=== PATIENT | male | born 1995 | race Two or more races ===

== ENCOUNTER 2019-07-27 12:43 | Emergency (ER) | payer SELFPAY ==
[~2019-07-27] VITALS: Ht 170.2 cm; Wt 119.1 kg
[2019-07-27 12:48] VITALS: BP 118/67
[2019-07-27] MEDS ORDERED: LIDOCAINE-MPF 1%, 5ML ONE ×2 (13:40→14:07)
--- NOTE | 2019-07-27 13:52 | NUR ---
MED PULLED FOR PROVIDER ADMIN
[2019-07-27] MEDS ORDERED: DIPH,PERTUSS(ACELL),TET VAC/PF 0.5 ML IM-VACC ONE ×2 (14:00→14:04)
[2019-07-27] MEDS ORDERED: LIDOCAINE-MPF 1%, 5ML INFIL ONE (14:00)
--- NOTE | 2019-07-27 14:09 | NUR ---
PROVIDER AT BEDSIDE TO SUTURE.
[2019-07-27] MEDS ORDERED: NEOSPORIN OINT. PKT 1 PACKET ONE (14:43)
== END 2019-07-27 15:25 | disposition home or self-care (01) ==
LOC: ED 15:06
DX: S61.210A Laceration without foreign body of right index finger without damage to nail, initial encounter (principal); W26.0XXA Contact with knife, initial encounter; Y93.89 Activity, other specified; Y92.098 Other place in other non-institutional residence as the place of occurrence of the external cause; Y99.8 Other external cause status
CPT/HCPCS: 12041; 90471; 90715; 99284

== ENCOUNTER 2019-08-03 12:25 | Emergency (ER) | payer SELFPAY ==
[~2019-08-03] VITALS: Ht 170.2 cm; Wt 117.7 kg
[2019-08-03 12:29] VITALS: BP 125/79
--- NOTE | 2019-08-03 12:37 | NUR ---
Pt here for suture removal of right hand index finger. Pt had two sutures removed by this RN.
--- NOTE | 2019-08-03 12:39 | NUR ---
Patient/Caregiver given discharge instructions and they have confirmed that they understand the instructions. Patient ambulatory with steady gait.
== END 2019-08-03 12:48 | disposition home or self-care (01) ==
LOC: ED 12:42
DX: S61.210D Laceration without foreign body of right index finger without damage to nail, subsequent encounter (principal); Z48.02 Encounter for removal of sutures; X58.XXXD Exposure to other specified factors, subsequent encounter
CPT/HCPCS: 99281

== ENCOUNTER 2019-10-08 20:47 | Emergency (ER) | payer SELFPAY ==
[~2019-10-08] VITALS: Ht 170.2 cm; Wt 115.9 kg
--- NOTE | 2019-10-08 21:00 | NUR ---
24 year old male to ED for LLQ abdominal pain with diarrhea. He states pain comes and goes but is getting worse. It is described as a sharp pain. No aggrevating or aleviating factors. Patient resting comfortable awaiting lab and imaging.
[2019-10-08 21:29] LABS: BASOPHILS # (AUTO) 0.05 x10^3/uL (0-0.1); BASOPHILS % (AUTO) 1 % (0-1); EOSINOPHILS % (AUTO) 1 % (1-7); LYMPHOCYTES # (AUTO) 2.95 x10^3/uL (1-3.4); LYMPHOCYTES % (AUTO) 43 % (22-44); MD NO; MEAN CORPUSCULAR HEMOGLOBIN 30.1 pg (27.5-34.5); MEAN CORPUSCULAR HGB CONC 33.3 g/dL (33.2-36.2); MEAN CORPUSCULAR VOLUME 90.4 fL (81-97); MEAN PLATELET VOLUME 8.5 fL (7.4-10.4); MONOCYTES # (AUTO) 0.37 x10^3/uL (0.2-0.8); MONOCYTES % (AUTO) 5 % (2-9); NEUTROPHILS # (AUTO) 3.47 x10^3/uL (1.8-6.8); NEUTROPHILS % (AUTO) 50 % (42-75); PLATELET COUNT 264 x10^3/uL (130-400); RED BLOOD COUNT 5.16 x10^6/uL (4.38-5.82); RED CELL DISTRIBUTION WIDTH 14.2 % (9.4-14.8)
[2019-10-08 21:39] LABS: ALANINE AMINOTRANSFERASE 99 U/L (12-78); ALBUMIN 3.9 g/dL (3.4-5.0); ANION GAP 6 mmol/L (5-15); CALCIUM 8.7 mg/dL (8.5-10.1); CHLORIDE 109 mmol/L (98-107); CREATININE 1.07 mg/dL (0.7-1.3)
[2019-10-08 21:43] LABS: ALKALINE PHOSPHATASE 87 U/L (45-117); BILIRUBIN,TOTAL 0.5 mg/dL (0.2-1.0); TOTAL PROTEIN 8.2 g/dL (6.4-8.2); TROPONIN I < 0.015 ng/mL (0.000-0.045)
[2019-10-08 22:25] LABS: MICROSCOPIC NOT IND
[2019-10-08 22:59] VITALS: BP 106/66
== END 2019-10-08 23:19 | disposition home or self-care (01) ==
LOC: ED 23:00
DX: R10.84 Generalized abdominal pain (principal); R07.89 Other chest pain; R19.7 Diarrhea, unspecified; R94.31 Abnormal electrocardiogram [ECG] [EKG]
CPT/HCPCS: 36415; 74022; 80053; 80307; 81003; 83690; 84484; 85025; 93005; 99285

== ENCOUNTER 2019-11-18 08:31 | Emergency (ER) | payer OTHER ==
[~2019-11-18] VITALS: Ht 170.2 cm; Wt 112.2 kg
--- NOTE | 2019-11-18 09:08 | NUR ---
first contact with pt. pt c/o llq abd pain radiating to back and right breast pain since this morning. pt denies n/v/d. pt's aox4. resps even and unlabored. all monitors in place. call light within reach. pa at bedside evaluating at this time.
[2019-11-18] MEDS ORDERED: ASPIRIN 81 MG TABLET CHEW ONE (09:14)
--- NOTE | 2019-11-18 09:19 | NUR ---
PT MEDICATED PER EMAR. PT TOLERATED WELL.
--- NOTE | 2019-11-18 09:19 | NUR ---
PT AMB TO BR AND BACK TO ROOM WITH STEADY GAIT. URINE COLLECTED AND UA SENT.
[2019-11-18 09:23] LABS: BASOPHILS % (AUTO) 1 % (0-1); EOSINOPHILS % (AUTO) 1 % (1-7); LYMPHOCYTES % (AUTO) 29 % (22-44); MEAN CORPUSCULAR HEMOGLOBIN 30.2 pg (27.5-34.5); MEAN CORPUSCULAR HGB CONC 33.2 g/dL (33.2-36.2); MEAN PLATELET VOLUME 8.5 fL (7.4-10.4); MONOCYTES % (AUTO) 8 % (2-9); NEUTROPHILS % (AUTO) 62 % (42-75); PLATELET COUNT 218 x10^3/uL (130-400); RED BLOOD COUNT 5.14 x10^6/uL (4.38-5.82); RED CELL DISTRIBUTION WIDTH 13.7 % (9.4-14.8)
[2019-11-18 09:24] LABS: MD NO
[2019-11-18] MEDS ORDERED: ASPIRIN 81 MG TABLET CHEW PO ONE (09:30)
[2019-11-18 09:35] LABS: ALANINE AMINOTRANSFERASE 51 U/L (12-78); ALBUMIN 3.9 g/dL (3.4-5.0); ANION GAP 6 mmol/L (5-15); CALCIUM 8.7 mg/dL (8.5-10.1); CHLORIDE 113 mmol/L (98-107)
[2019-11-18 09:40] LABS: ALKALINE PHOSPHATASE 85 U/L (45-117); BILIRUBIN,TOTAL 0.3 mg/dL (0.2-1.0); TOTAL PROTEIN 7.8 g/dL (6.4-8.2); TROPONIN I < 0.015 ng/mL (0.000-0.045)
[2019-11-18 09:46] VITALS: BP 122/68
[2019-11-18 09:50] LABS: MICROSCOPIC NOT IND
--- NOTE | 2019-11-18 10:17 | NUR ---
Patient given discharge instructions and they have confirmed that they understand the instructions. Patient ambulatory with steady gait.
== END 2019-11-18 10:18 | disposition home or self-care (01) ==
LOC: ED 09:06
DX: R07.1 Chest pain on breathing (principal); R10.9 Unspecified abdominal pain; R07.89 Other chest pain
CPT/HCPCS: 36415; 71045; 80053; 81003; 83880; 84484; 85025; 93005; 99285